=== PATIENT | male | born 1945 | race Caucasian/White ===

== ENCOUNTER 2016-04-27 09:51 | Outpatient (CLI) | payer MEDICARE ==
[2016-04-27 11:32] LABS: #Basophils 0.1 thou/uL (0.0-0.2); #Eosinphils 0.2 thou/uL (0.0-0.7); #Lymphocytes 1.5 thou/uL (1.20-3.40); #Monocytes 0.7 thou/uL (0.11-0.59); #Neutrophils 3.3 thou/uL (1.40-6.50); %Eosinophils 2.9 % (0.0-10.0); %Lymphocytes 26.8 % (21.0-51.0); %Monocytes 12.2 % (0.0-10.0); %Neutrophils 57.1 % (42.0-75.0); Hemoglobin 15.7 g/dL (14.0-18.0); Mean Corpuscular HGB CONC 31.3 g/dL (32.0-36.0); Mean Corpuscular Hemoglobin 28.8 pg (27.0-31.0); Mean Corpuscular Volume 92.1 fl (80.0-94.0); Mean Platelet Volume 9.6 fL (7.4-10.4); Platelet Count 201 thou/uL (130-400); RBC Distribution Width 13.2 % (11.5-14.5); Red Blood Cell (RBC) Count 5.46 mill/uL (4.70-6.10); White Blood Cell (WBC) Count 5.8 thou/uL (4.8-10.8)
[2016-04-27 11:49] LABS: ALT (SGPT) 31 U/L (0-55); AST (SGOT) 22 U/L (5-34); Alkaline Phosphatase 92 U/L (40-150); Anion Gap 13 mmol/L (10-20); BUN (Urea Nitrogen) 17 mg/dL (8.4-25.7); Bilirubin, Direct 0.3 mg/dL (0.1-0.3); Bilirubin, Total 0.7 mg/dL (0.2-1.2); Calc. Creatinine Clearance 0 mL/min (70-130); Carbon Dioxide 27 mmol/L (23-31); Cardiac Risk 2.9 (Less than 4.5); Chloride 103 mmol/L (98-107); Cholesterol 108 mg/dL (< 200 Desired); Estimated GFR-MDRD 89; Glucose 81 mg/dL (83-110); HDL Cholesterol 37 mg/dL (>60 Neg Risk); LDL Cholesterol, Calculated 59 mg/dL; Potassium 4.1 mmol/L (3.5-5.1); Protein, Total 7.2 g/dL (5.8-8.1); Sodium 139 mmol/L (136-145); Triglycerides 58 mg/dL (Less than 150)
== END 2016-04-27 09:52 | disposition home or self-care (01) ==
LOC: MADLABBHPM 09:51
PROVIDERS: ATTEND Family Medicine
DX: I25.10 Atherosclerotic heart disease of native coronary artery without angina pectoris (principal); M19.90 Unspecified osteoarthritis, unspecified site
CPT/HCPCS: 36415; 80048; 80061; 80076; 84443; 85025

== ENCOUNTER 2016-07-26 09:09 | Outpatient (CLI) | payer MEDICARE ==
[2016-07-26 09:55] LABS: ALT (SGPT) 37 U/L (8-55); AST (SGOT) 23 U/L (5-34); Albumin 3.8 g/dL (3.4-4.8); Alkaline Phosphatase 94 U/L (40-150); Anion Gap 12 mmol/L (10-20); BUN (Urea Nitrogen) 14 mg/dL (8.4-25.7); Bilirubin, Direct 0.3 mg/dL (0.1-0.3); Bilirubin, Total 0.7 mg/dL (0.2-1.2); Calc. Creatinine Clearance 0 mL/min (70-130); Calcium 8.7 mg/dL (7.8-10.44); Carbon Dioxide 27 mmol/L (23-31); Cardiac Risk 2.5 (Less than 4.5); Chloride 105 mmol/L (98-107); Cholesterol 109 mg/dl (< 200 Desired); Estimated GFR-MDRD Greater than 90; Glucose 94 mg/dL (83-110); HDL Cholesterol 43 mg/dL (>60 Neg Risk); LDL Cholesterol, Calculated 53 mg/dL; Potassium 3.9 mmol/L (3.5-5.1); Protein, Total 7.1 g/dL (5.8-8.1); Sodium 140 mmol/L (136-145); Triglycerides 67 mg/dL (Less than 150)
== END 2016-07-26 09:10 | disposition home or self-care (01) ==
LOC: MADLABBHPM 09:09
PROVIDERS: ATTEND Family Medicine
DX: I25.10 Atherosclerotic heart disease of native coronary artery without angina pectoris (principal)
CPT/HCPCS: 36415; 80048; 80061; 80076

== ENCOUNTER 2016-10-29 08:56 | Outpatient (CLI) | payer MEDICARE ==
[2016-10-29 11:19] LABS: ALT (SGPT) 32 U/L (8-55); AST (SGOT) 23 U/L (5-34); Albumin 3.9 g/dL (3.4-4.8); Alkaline Phosphatase 89 U/L (40-150); Anion Gap 11 mmol/L (10-20); BUN (Urea Nitrogen) 15 mg/dL (8.4-25.7); Bilirubin, Direct 0.4 mg/dL (0.1-0.3); Bilirubin, Total 0.8 mg/dL (0.2-1.2); Calc. Creatinine Clearance 0 mL/min (70-130); Calcium 8.8 mg/dL (7.8-10.44); Carbon Dioxide 27 mmol/L (23-31); Cardiac Risk 2.7 (Less than 4.5); Chloride 105 mmol/L (98-107); Cholesterol 102 mg/dl (< 200 Desired); Estimated GFR-MDRD Greater than 90; Glucose 93 mg/dL (83-110); HDL Cholesterol 38 mg/dL (>60 Neg Risk); LDL Cholesterol, Calculated 53 mg/dL; Potassium 4.2 mmol/L (3.5-5.1); Protein, Total 7.3 g/dL (5.8-8.1); Sodium 139 mmol/L (136-145); Triglycerides 57 mg/dL (Less than 150)
== END 2016-10-29 08:57 | disposition home or self-care (01) ==
LOC: MADLABBHPM 08:56
PROVIDERS: ATTEND Family Medicine
DX: E78.00 Pure hypercholesterolemia, unspecified (principal); I10 Essential (primary) hypertension
CPT/HCPCS: 36415; 80048; 80061; 80076

== ENCOUNTER 2017-01-22 12:30 | Emergency (ER) | payer MEDICARE ==
[~2017-01-22 12:30] MED LIST: Sodium Chloride 0.9% 100 ML BAG ONE
[2017-01-22] MEDS ORDERED: Clindamycin 150 MG CAP ONE (16:01)
[2017-01-22] MEDS ORDERED: HYDROcodone/Acetaminophen 10/325 mg Tablet ONE (16:01)
[2017-01-22] MEDS ORDERED: cefTRIAXone\\ROCEPHIN 2 GM VIAL ONE (16:01)
== END 2017-01-22 17:00 | disposition home or self-care (01) ==
LOC: MADERS 12:30
DX: N45.3 Epididymo-orchitis (principal); I25.10 Atherosclerotic heart disease of native coronary artery without angina pectoris; K21.9 Gastro-esophageal reflux disease without esophagitis; E78.5 Hyperlipidemia, unspecified; I10 Essential (primary) hypertension; Z86.73 Personal history of transient ischemic attack (TIA), and cerebral infarction without residual deficits; J45.909 Unspecified asthma, uncomplicated; Z87.891 Personal history of nicotine dependence; Z79.899 Other long term (current) drug therapy; Z79.82 Long term (current) use of aspirin
CPT/HCPCS: 96365; J0696; J7050

== ENCOUNTER 2017-01-26 10:08 | Outpatient (CLI) | payer MEDICARE ==
[2017-01-26 11:30] LABS: ALT (SGPT) 35 U/L (8-55); AST (SGOT) 22 U/L (5-34); Albumin 3.6 g/dL (3.4-4.8); Alkaline Phosphatase 88 U/L (40-150); Anion Gap 14 mmol/L (10-20); BUN (Urea Nitrogen) 17 mg/dL (8.4-25.7); Bilirubin, Direct 0.3 mg/dL (0.1-0.3); Bilirubin, Total 0.6 mg/dL (0.2-1.2); Calc. Creatinine Clearance 0 mL/min (70-130); Calcium 8.8 mg/dL (7.8-10.44); Carbon Dioxide 27 mmol/L (23-31); Chloride 102 mmol/L (98-107); Estimated GFR-MDRD 79; Glucose 100 mg/dL (83-110); Potassium 4.1 mmol/L (3.5-5.1); Protein, Total 7.5 g/dL (5.8-8.1); Sodium 139 mmol/L (136-145)
[2017-01-26 11:46] LABS: Cardiac Risk 3.3 (Less than 4.5); Cholesterol 101 mg/dl (< 200 Desired); HDL Cholesterol 31 mg/dL (>60 Neg Risk); LDL Cholesterol, Calculated 55 mg/dL; Triglycerides 75 mg/dL (Less than 150)
--- NOTE | 2017-01-26 14:05 | ULT ---
SCROTAL ULTRASOND: INDICATION: History of epididymal orchitis on Brandt with fever, now with worsening swelling in the right testicl e. TECHNIQUE: Turcios scale, color Doppler, and vascular duplex with spectral analysis was performed. COMPARISON: No comparisons are available. FINDINGS: The right testicle measures 4.7 x 3.2 x 3.0 cm. The left testicle was similar in size measuring 4.5 x 1.9 x 2.9 cm. There is very subtle increased flow in the right testicle when compared to the left. There is a smal l right-sided hydrocele. No intratesticular mass is evident. The right epididymis appears engorged with mixed echogenicity measuring 3.1 x 2.7 x 4 cm whereas the left measured 1.5 x 1.1 x 1.2 cm. There is increased vascular flow of the right epididymis in relation to the left. There is incidenta l note of a small mixed-echogenicity mass, that is predominantly hypoechoic measuring 6 x 5 mm within the epididymal tail on the left. IMPRESSION: 1. Findings remain suspicious for right-sided epididymal orchitis with a small right hydrocele. 2. Small hypoechoic mass lesion seen within the epididymal tail of the left epididymis. This is non specific and may reflect dilated tubules. It also could reflect a small granuloma. A small mass wit hin the epididymis cannot be entirely excluded. Recommend short-term followup. POS: NATALIE
== END 2017-01-26 10:09 | disposition home or self-care (01) ==
LOC: MADLABBHPM 10:08
PROVIDERS: ATTEND Family Medicine
DX: N45.3 Epididymo-orchitis (principal); E78.00 Pure hypercholesterolemia, unspecified; I10 Essential (primary) hypertension; N50.89 Other specified disorders of the male genital organs
CPT/HCPCS: 36415; 76870; 80048; 80061; 80076

== ENCOUNTER 2017-05-18 15:39 | Outpatient (CLI) | payer MEDICARE ==
[2017-05-18 16:11] LABS: Bilirubin Negative (Negative); Blood, Urine Negative (Negative); Clarity Clear (Clear); Glucose, Urine (Dipstick) Negative (Negative); Leukocyte Negative (Negative); Nitrite Negative (Negative); Protein, Urine (Dipstick) Trace mg/dL (Neg-Trace); Specific Gravity, Urine 1.025 (1.005-1.030); Urobilinogen 0.2 mg/dL (0.2-1.0); pH, Urine 5.5 (5.0-9.0)
[2017-05-18 16:19] LABS: Anion Gap 11 mmol/L (10-20); BUN (Urea Nitrogen) 18 mg/dL (8.4-25.7); Bacteria/HPF None Seen HPF (None Seen); Calc. Creatinine Clearance 0 mL/min (70-130); Calcium 9.5 mg/dL (7.8-10.44); Carbon Dioxide 28 mmol/L (23-31); Chloride 102 mmol/L (98-107); Estimated GFR-MDRD 85; Glucose 81 mg/dL (83-110); Potassium 4.4 mmol/L (3.5-5.1); RBC/HPF None Seen HPF (0-3); Sodium 137 mmol/L (136-145); Squamous Epithelial None Seen HPF (0-3); WBC/HPF None Seen HPF (0-3)
[2017-05-18 16:37] LABS: #Basophils 0.1 thou/uL (0.0-0.2); #Eosinphils 0.2 thou/uL (0.0-0.7); #Lymphocytes 1.3 thou/uL (1.20-3.40); #Neutrophils 5.4 thou/uL (1.40-6.50); %Basophils 1.4 % (0.0-1.0); %Eosinophils 2.9 % (0.0-10.0); %Monocytes 12.8 % (0.0-10.0); Mean Corpuscular HGB CONC 33.3 g/dL (32.0-36.0); Mean Corpuscular Hemoglobin 28.9 pg (27.0-31.0); Mean Corpuscular Volume 86.8 fl (80.0-94.0); Mean Platelet Volume 8.2 fL (7.4-10.4); Platelet Count 186 thou/uL (130-400); RBC Distribution Width 12.9 % (11.5-14.5); Red Blood Cell (RBC) Count 5.54 mill/uL (4.70-6.10)
== END 2017-05-18 15:40 | disposition home or self-care (01) ==
LOC: MADLABBHPM 15:39
PROVIDERS: ATTEND Family Medicine
DX: R50.9 Fever, unspecified (principal)
CPT/HCPCS: 36415; 80048; 81001; 85025; 87086

== ENCOUNTER 2023-02-10 12:39 | Outpatient (CLI) | payer MEDICARE | END 2023-02-10 12:40 | disposition home or self-care (01) | LOC: MADRAD 12:39 | PROVIDERS: ATTEND Internal Medicine | DX: R05.9 Cough, unspecified (principal) | CPT/HCPCS: 71046 ==